=== PATIENT | male | born 1995 | race African-American/Black ===

== ENCOUNTER → 2017-09-12 | Outpatient (CLI) | payer OTHER ==
--- NOTE | 2017-09-12 17:41 | RADIOLOGY IMAGING REPORT ---
FACILITY: [facility] PATIENT NAME: Igor Barillas : 1995 MR: [id number] V: [id number] EXAM DATE: ORDERING PHYSICIAN: ELAINE GRADY TECHNOLOGIST: Location: [facility] Patient: Igor Barillas : 1995 Visit/Account:[id number] Date of Sevice: 09/12/2017 Exam type: CHEST PA AND LAT History: Anterior chest pain, sternum pain for months Comparison: None. Findings: The lungs are free of acute effusions, infiltrates or edema. No evidence of a pneumothorax or pneumo mediastinum. The cardiac silhouette is normal in size. Trachea is in midline. IMPRESSION: 1. No acute cardiopulmonary process is seen Report Dictated By: Rochelle Kelly MD at 09/12/2017 5:37 PM Report E-Signed By: Rochelle Kelly MD at 09/12/2017 5:37 PM WSN:[email or web address]
== END ==
LOC: RAD 16:37
PROVIDERS: ATTEND Emergency Medicine Sports Medicine
DX: R07.89 Other chest pain (principal)
CPT/HCPCS: 71046